=== PATIENT | female | born 1945 | race Caucasian/White ===

== ENCOUNTER 2017-01-04 11:15 | Outpatient (CLI) | payer MEDICARE, BC ==
--- NOTE | 2017-01-04 13:28 | RAD ---
RADIOGRAPH ABDOMEN ONE VIEW SUPINE: 01/04/2017 HISTORY: A 71-year-old female with history of renal stone. COMPARISON: No recent prior KUBs are available. There is a noncontrast CT from 03/25/2008, which shows a puncta te 2 mm calculus in a right renal lower pole calyx, which is too small and too faint to visualize on plain radiography. FINDINGS: No calculus overlying the renal shadows is visible. There are faint, short, linear, calcific densit ies in the pelvis bilaterally. One of these on the right represents a tubal ligation clip. Another on the right may be a calcified suture line at the tip of the cecum. The bowel gas pattern is norm al. High-grade degenerative facet disease at L5-S1. No evidence of organomegaly. IMPRESSION: 1. No evidence of urolithiasis. 2. Facet osteoarthrosis at the lumbosacral junction. POS: [facility]
[2017-01-04 13:51] LABS: Bilirubin Negative (Negative); Blood, Urine Negative (Negative); Glucose, Urine (Dipstick) Negative (Negative); Ketone, Urine Negative (Negative); Nitrite Negative (Negative); Protein, Urine (Dipstick) Negative (Neg-Trace); Urobilinogen 0.2 mg/dL (0.2-1.0)
[2017-01-04 13:58] LABS: Bacteria/HPF None Seen HPF (None Seen); Hyaline Casts/LPF 0-3 HYALINE CAST LPF (0-3 Hyaline); RBC/HPF 0-3 HPF (0-3); Squamous Epithelial 0-3 HPF (0-3); WBC/HPF None Seen HPF (0-3)
== END 2017-01-04 11:16 | disposition home or self-care (01) ==
LOC: RAD 11:15
PROVIDERS: ATTEND Urology
DX: R35.1 Nocturia (principal); Z87.442 Personal history of urinary calculi; Z87.440 Personal history of urinary (tract) infections; M47.817 Spondylosis without myelopathy or radiculopathy, lumbosacral region
CPT/HCPCS: 74000; 81001; 87086

== ENCOUNTER 2017-02-22 14:52 | Outpatient (CLI) | payer MEDICARE, BC ==
--- NOTE | 2017-02-22 15:23 | MMO ---
RIGHT DIAGNOSTIC MAMMOGRAM: Technique: Two views of right breast obtained post biopsy. Indication: Assess biopsy clip. Ultrasound guided biopsy was performed at Dr. Kendall' office. Patien t was sent to assess biopsy clip location. FINDINGS: A localization clip is seen in the retroareolar region of the right breast. This corresponds to the s tated site of ultrasound biopsy. IMPRESSION: BIRADS 4 - suspicious lesion. Patient is post ultrasound guided biopsy. Pathology pending. POS: [facility]
== END 2017-02-22 14:53 | disposition home or self-care (01) ==
LOC: MAMMO 14:52
PROVIDERS: ATTEND Specialist
DX: N63.10 Unspecified lump in the right breast, unspecified quadrant (principal)
CPT/HCPCS: G0206-RT

== ENCOUNTER 2017-02-24 13:14 | Outpatient (CLI) | payer MEDICARE, BC ==
[2017-02-24 15:08] LABS: #Basophils 0.1 thou/uL (0.0-0.2); #Eosinphils 0.2 thou/uL (0.0-0.7); #Lymphocytes 1.8 thou/uL (1.20-3.40); #Monocytes 0.7 thou/uL (0.11-0.59); #Neutrophils 3.7 thou/uL (1.40-6.50); %Basophils 1.1 % (0.0-1.0); %Lymphocytes 27.6 % (21.0-51.0); Hematocrit 42.1 % (36.0-47.0); Mean Platelet Volume 6.7 fL (7.4-10.4); Red Blood Cell (RBC) Count 4.48 mill/uL (4.20-5.40); White Blood Cell (WBC) Count 6.4 thou/uL (4.8-10.8)
[2017-02-24 15:25] LABS: Anion Gap 11 mmol/L (10-20); BUN (Urea Nitrogen) 15 mg/dL (9.8-20.1); Calc. Creatinine Clearance 0 mL/min (70-130); Calcium 9.4 mg/dL (7.8-10.44); Carbon Dioxide 28 mmol/L (23-31); Chloride 104 mmol/L (98-107); Estimated GFR-MDRD 63
== END 2017-02-24 13:15 | disposition home or self-care (01) ==
LOC: LABBT 13:14
PROVIDERS: ATTEND Specialist
DX: Z01.818 Encounter for other preprocedural examination (principal); N63.10 Unspecified lump in the right breast, unspecified quadrant
CPT/HCPCS: 80048; 85025; 93005; 93010

== ENCOUNTER 2017-03-07 11:40 | Day surgery (SDC) | payer MEDICARE, BC ==
[2017-02-24 13:32] VITALS: BMI 28.7
[2017-03-07] MEDS ORDERED: CEFAZOLIN/Water 2 GM/20 ML SYRINGE ONE (12:01)
[2017-03-07] MEDS ORDERED: Ketorolac Tromethamine 30 MG/ML VIAL ONE (12:01)
[2017-03-07] MEDS ORDERED: Fentanyl 100 MCG/2 ML VIAL ONE (13:11)
[2017-03-07] MEDS ORDERED: Bupivacaine/Epinephrine 0.25% 30 ML VIAL ONE (13:13)
[2017-03-07] MEDS ORDERED: Sodium Bicarbonate 2.4 MEQ/5 ML ONE (13:13)
[2017-03-07] MEDS ORDERED: ePHEDrine/0.9% NaCl/PF SYRINGE 50 mg/10 ml ONE (16:28)
[2017-03-07] MEDS ORDERED: PHENYLEPHRINE-NS 100 MCG/ML 10 ML SYRINGE ONE (16:28)
[2017-03-07] MEDS ORDERED: Succinylcholine Chloride 20 MG/ML 10 ml SYRINGE FS ONE (16:28)
[2017-03-07] MEDS ORDERED: Ondansetron HCl/PF 4 MG/2 ML Vial ONE (16:28)
[2017-03-07] MEDS ORDERED: Propofol 200 MG/20 ML VIAL ONE (16:28)
[2017-03-07] MEDS ORDERED: Dexamethasone 20 MG/5 ML VIAL ONE (16:28)
[2017-03-07] MEDS ORDERED: Lidocaine 1% PF 5 ML VIAL ONE (16:28)
--- NOTE | 2017-03-07 20:27 | OP ---
DATE OF PROCEDURE: 03/07/2017 PREOPERATIVE DIAGNOSIS: Right breast subareolar mass. POSTOPERATIVE DIAGNOSIS: Right breast subareolar mass. OPERATION PERFORMED: Excisional biopsy of a palpable right breast mass. SURGEON: Judah Kendall M.D. ANESTHESIA: General endotracheal per Dr. Roman with local using 0.25% Marcaine with epinephrine. INDICATIONS: The patient is a 71-year-old white female. She presented with a palpable right subareo lar mass. She had in some fashion had nipple-sparing bilateral mastectomies performed years ago, so she has minimal breast tissue present. Biopsies of this mass proved to be benign, but since she felt this was a change, I recommended excision. DESCRIPTION OF OPERATION: Informed consent was obtained. The patient was taken to the operating arielle m where general endotracheal anesthesia was obtained with the patient in supine position. Right fabian st was prepped with ChloraPrep and draped in sterile fashion. Local anesthetic was infiltrated using 0.25% Marcaine with epinephrine. Prior supraareolar incision was reopened and dissection was breanna d through skin and subcutaneous tissue. Dissection was then carried subareolar. I was able to palpa te and grasp the area of concern and this was dissected sharply circumferentially and passed off the field. On palpating the tissue subareolar, there was a second nodular lesion that was about 6-7 mm i n diameter. This was also grasped and removed sharply. Meticulous hemostasis was obtained with elec trocautery. The wound was closed in layers with 3-0 and 4-0 Monocryl. Additional local anesthetic w as infiltrated during closure. Dermabond was placed externally. There were no complications. The p atient tolerated the procedure well and was taken to recovery room in stable condition.
== END 2017-03-07 16:20 | disposition home or self-care (01) ==
LOC: SDC 11:40
PROVIDERS: ATTEND Specialist
PROC: 0HBT0ZX Excision of Right Breast, Open Approach, Diagnostic (ICD-10-PCS; principal; 2017-03-07)
DX: D24.1 Benign neoplasm of right breast (principal); I10 Essential (primary) hypertension; G43.909 Migraine, unspecified, not intractable, without status migrainosus; K21.9 Gastro-esophageal reflux disease without esophagitis; F32.9 Major depressive disorder, single episode, unspecified; Z88.5 Allergy status to narcotic agent; Z91.048 Other nonmedicinal substance allergy status; Z90.13 Acquired absence of bilateral breasts and nipples; Z82.49 Family history of ischemic heart disease and other diseases of the circulatory system
CPT/HCPCS: 88307; J0131; J1100; J1885; J2001; J2405; J2704; J3010

== ENCOUNTER 2017-03-17 08:22 | Outpatient (CLI) | payer MEDICARE, BC ==
--- NOTE | 2017-03-17 14:06 | NM ---
NUCLEAR MEDICINE GASTRIC EMPTYING SCAN: 03/17/2017 HISTORY: A 71-year-old female with gastroesophageal reflux disease without esophagitis. TECHNIQUE: 2.1 millicuries of technetium 99m sulfur colloid was served in oatmeal. Anterior scintigraphic image s of the abdomen were obtained immediately, at 30 minutes, at 1 hour, at 2 hours, and at 3 hours. Co unts obtained over the stomach and time-activity curve generated. FINDINGS: Percentage emptying is as follows: 1% at 27 minutes 23% at 55 minutes 75% at 115 minutes 96% at 171 minutes 100% at 232 minutes Half-time of emptying is 86 minutes. IMPRESSION: Within normal limits. POS: [facility]
== END 2017-03-17 08:23 | disposition home or self-care (01) ==
LOC: NM 08:22
PROVIDERS: ATTEND Internal Medicine Gastroenterology
DX: K21.9 Gastro-esophageal reflux disease without esophagitis (principal)
CPT/HCPCS: 78264; A9541

== ENCOUNTER 2017-03-31 10:28 | Outpatient (CLI) | payer MEDICARE, BC ==
--- NOTE | 2017-03-31 13:25 | RAD ---
EXAM: UPPER GI WITH AIR CONTRAST: HISTORY: Gastroesophageal reflux disease. Hiatal hernia. COMPARISON: None. FINDINGS: SUPINE FNP ABDOMEN RADIOGRAPH: Nonspecific bowel gas pattern. The thoracic esophagus has an overall normal course and caliber. No mucosal abnormality. There is a moderate hiatal hernia with reflux during fluoroscopy. Gastric mucosa has an overall normal appeara nce. Duodenal bulb and proximal duodenum are unremarkable. IMPRESSION: Moderate hiatal hernia with evidence of reflux during intermittent fluoroscopy. POS: [facility]
== END 2017-03-31 10:29 | disposition home or self-care (01) ==
LOC: RAD 10:28
PROVIDERS: ATTEND Specialist
DX: K21.9 Gastro-esophageal reflux disease without esophagitis (principal); K44.9 Diaphragmatic hernia without obstruction or gangrene
CPT/HCPCS: 74247

== ENCOUNTER → 2017-04-03 | Day surgery (SDC) | payer MEDICARE, BC | LOC: SDC 07:37 | PROVIDERS: ATTEND Internal Medicine Gastroenterology | DX: K21.9 Gastro-esophageal reflux disease without esophagitis (principal); K44.9 Diaphragmatic hernia without obstruction or gangrene; I10 Essential (primary) hypertension; F32.9 Major depressive disorder, single episode, unspecified; Z87.442 Personal history of urinary calculi; Z88.5 Allergy status to narcotic agent; Z88.8 Allergy status to other drugs, medicaments and biological substances; Z91.040 Latex allergy status; Z79.82 Long term (current) use of aspirin; Z79.899 Other long term (current) drug therapy; Z90.10 Acquired absence of unspecified breast and nipple; Z90.49 Acquired absence of other specified parts of digestive tract; Z98.890 Other specified postprocedural states | CPT/HCPCS: 91010 ==

== ENCOUNTER 2017-04-17 11:43 | Outpatient (CLI) | payer MEDICARE, BC ==
[2017-04-17 13:49] LABS: #Basophils 0.1 thou/uL (0.0-0.2); #Eosinphils 0.2 thou/uL (0.0-0.7); #Lymphocytes 1.9 thou/uL (1.20-3.40); #Monocytes 0.8 thou/uL (0.11-0.59); #Neutrophils 4.5 thou/uL (1.40-6.50); %Basophils 1.2 % (0.0-1.0); %Eosinophils 3.1 % (0.0-10.0); %Lymphocytes 25.8 % (21.0-51.0); %Monocytes 10.6 % (0.0-10.0); %Neutrophils 59.4 % (42.0-75.0); Hemoglobin 14.1 g/dL (12.0-16.0); Mean Corpuscular HGB CONC 33.1 g/dL (32.0-36.0); Mean Corpuscular Hemoglobin 30.9 pg (27.0-31.0); Mean Corpuscular Volume 93.4 fl (81.0-99.0); Mean Platelet Volume 6.8 fL (7.4-10.4); Platelet Count 204 thou/uL (130-400); RBC Distribution Width 12.3 % (11.5-14.5); Red Blood Cell (RBC) Count 4.55 mill/uL (4.20-5.40); White Blood Cell (WBC) Count 7.5 thou/uL (4.8-10.8)
[2017-04-17 14:19] LABS: Anion Gap 16 mmol/L (10-20); BUN (Urea Nitrogen) 24 mg/dL (9.8-20.1); Calc. Creatinine Clearance 0 mL/min (70-130); Calcium 9.8 mg/dL (7.8-10.44); Carbon Dioxide 26 mmol/L (23-31); Chloride 103 mmol/L (98-107); Estimated GFR-MDRD 70; Glucose 96 mg/dL (83-110); Sodium 141 mmol/L (136-145)
--- NOTE | 2017-04-17 14:54 | RAD ---
RADIOGRAPH CHEST 2 VIEWS: HISTORY: 71-year-old female for pre-operative evaluation. FINDINGS: There is no air space density, pulmonary edema, pleural effusion, pneumothorax, or cardiomegaly. IMPRESSION: No acute cardiopulmonary findings. frank POS: [facility]
--- NOTE | 2017-04-18 23:39 | EKG ---
Test Reason : Blood Pressure : / mmHG Vent. Rate : 071 BPM Atrial Rate : 071 BPM P-R Int : 176 ms QRS Dur : 084 ms QT Int : 390 ms P-R-T Axes : 044 054 136 degrees QTc Int : 423 ms Normal sinus rhythm Nonspecific ST and T wave abnormality Abnormal ECG When compared with ECG of 24-FEB-2017 14:04, (Unconfirmed) Nonspecific T wave abnormality, worse in Lateral leads Confirmed by Richard CASAS ([id number]) on 04/18/2017 11:39:28 PM Referred By: TRAV Confirmed By:Richard CASAS
== END 2017-04-17 11:44 | disposition home or self-care (01) ==
LOC: LABBT 11:43
PROVIDERS: ATTEND Specialist
DX: Z01.812 Encounter for preprocedural laboratory examination (principal); Z01.810 Encounter for preprocedural cardiovascular examination; Z01.818 Encounter for other preprocedural examination; K44.9 Diaphragmatic hernia without obstruction or gangrene; K21.9 Gastro-esophageal reflux disease without esophagitis
CPT/HCPCS: 71046; 80048; 85025; 93005; 93010

== ENCOUNTER 2017-04-17 12:00 | Inpatient (IN) | payer MEDICARE, BC ==
[2017-04-17 12:07] VITALS: BMI 27.9
[2017-04-20] MEDS ORDERED: Ketorolac Tromethamine 30 MG/ML VIAL ONE (08:30)
[2017-04-20] MEDS ORDERED: CEFAZOLIN/Water 2 GM/20 ML SYRINGE ONE (08:30)
[2017-04-20] MEDS ORDERED: Scopolamine 1.5 mg/72 hour Patch ONE (09:00)
[2017-04-20] MEDS ORDERED: Bupivacaine 0.25% HCL 30 ML VIAL ONE (09:16)
[2017-04-20] MEDS ORDERED: Lidocaine 2% w/Epinephrine 1:200K 20 ML VIAL ONE (09:16)
[2017-04-20] MEDS ORDERED: Midazolam HCl 2 mg/2 ml Vial ONE (09:35)
[2017-04-20] MEDS ORDERED: Fentanyl 100 MCG/2 ML VIAL ONE ×3 (09:41→12:27)
[2017-04-20] MEDS ORDERED: HYDROmorphone 0.5 MG/0.5 ML SYRINGE ONE ×3 (12:44→13:08)
[2017-04-20] MEDS ORDERED: Ondansetron HCl/PF 4 MG/2 ML Vial IVP PRN (12:46)
[2017-04-20] MEDS ORDERED: Promethazine HCl 25 MG/ML VIAL IM/IV PRN (12:46)
[2017-04-20] MEDS ORDERED: Non-Formulary Medication 1 EACH PO PRN (12:46)
[2017-04-20] MEDS ORDERED: HYDROmorphone 2 MG/ML VIAL SLOW IVP PRN (12:46)
[2017-04-20] MEDS ORDERED: Dextrose 5% in Water 1,000 ML IV PRN (14:10)
[2017-04-20] MEDS ORDERED: Acetaminophen 325 MG TAB PO PRN (14:10)
[2017-04-20] MEDS ORDERED: Promethazine HCl 25 MG/ML VIAL IM PRN (14:10)
[2017-04-20] MEDS ORDERED: Morphine 2 MG/ML SYRINGE SLOW IVP PRN (14:10)
[2017-04-20] MEDS ORDERED: Mag-Al 1200 mg/1200 mg/30 ML UDCUP PO PRN (14:10)
[2017-04-20] MEDS ORDERED: hydrALAZINE 20 MG/ML VIAL SLOW IVP PRN (14:10)
[2017-04-20] MEDS ORDERED: Calcium Carbonate 500 MG ChewTAB PO PRN (14:10)
[2017-04-20] MEDS ORDERED: Dextrose 50% Abboject 50 ML SYRINGE SLOW IVP PRN (14:10)
[2017-04-20] MEDS: Ondansetron HCl/PF 4 MG/2 ML Vial IVP PRN ×2 (14:24→23:18)
[2017-04-20] MEDS: D5 1/2 NS w/20 mEq KCL 1,000 ML IV SCH ×2 (14:25→20:25)
[2017-04-20] MEDS: Morphine 2 MG/ML SYRINGE SLOW IVP PRN (14:29)
[2017-04-20] MEDS: Ketorolac Tromethamine 30 MG/ML VIAL IVP SCH ×2 (15:23→20:27)
[2017-04-20] MEDS ORDERED: ePHEDrine/0.9% NaCl/PF SYRINGE 50 mg/10 ml ONE (16:18)
[2017-04-20] MEDS ORDERED: PROPOFOL 200 MG/20 ML VIAL ONE (16:18)
[2017-04-20] MEDS ORDERED: PHENYLEPHRINE-NS 100 MCG/ML 10 ML SYRINGE ONE (16:18)
[2017-04-20] MEDS ORDERED: Dexamethasone 20 MG/5 ML VIAL ONE (16:18)
[2017-04-20] MEDS ORDERED: Glycopyrrolate 0.2 MG/ML 5 ML SYRINGE ONE (16:18)
[2017-04-20] MEDS ORDERED: Ondansetron HCl/PF 4 MG/2 ML Vial ONE (16:18)
[2017-04-20] MEDS ORDERED: Lidocaine 1% PF 5 ML VIAL ONE (16:18)
[2017-04-20] MEDS ORDERED: Enoxaparin Sodium 40 MG/0.4 ML SYRINGE SC SCH (21:00)
[2017-04-21 04:11] LABS: #Lymphocytes 1.4 thou/uL (1.20-3.40); #Monocytes 1.2 thou/uL (0.11-0.59); #Neutrophils 8.9 thou/uL (1.40-6.50); %Eosinophils 0.1 % (0.0-10.0); %Lymphocytes 11.8 % (21.0-51.0); %Monocytes 10.6 % (0.0-10.0); %Neutrophils 77.5 % (42.0-75.0); Hemoglobin 12.8 g/dL (12.0-16.0); Mean Corpuscular HGB CONC 33.1 g/dL (32.0-36.0); Mean Corpuscular Hemoglobin 30.7 pg (27.0-31.0); Mean Corpuscular Volume 92.9 fl (81.0-99.0); Mean Platelet Volume 6.6 fL (7.4-10.4); Platelet Count 192 thou/uL (130-400); RBC Distribution Width 12.1 % (11.5-14.5); Red Blood Cell (RBC) Count 4.16 mill/uL (4.20-5.40); White Blood Cell (WBC) Count 11.5 thou/uL (4.8-10.8)
[2017-04-21] MEDS: Ondansetron HCl/PF 4 MG/2 ML Vial IVP PRN (05:43)
[2017-04-21] MEDS: Morphine 2 MG/ML SYRINGE SLOW IVP PRN (05:44)
[2017-04-21] MEDS: Ketorolac Tromethamine 30 MG/ML VIAL IVP SCH ×2 (05:44→12:30)
[2017-04-21] MEDS: D5 1/2 NS w/20 mEq KCL 1,000 ML IV SCH (05:50)
--- NOTE | 2017-04-21 08:50 | PRG ---
DATE OF SERVICE: 04/21/2017 SUBJECTIVE: Ms. Bui is postoperative day #1 from laparoscopic repair of hiatal hernia and Xochilt fundoplication. She unfortunately tells me she has had fairly severe discomfort overnight both in he r shoulders and in her upper abdomen. She does not believe that her pain has been well controlled wi th her pain control. She was receiving scheduled Toradol, and p.r.n. morphine. She tells me she bas ically has not slept overnight. She also tells me that she has had a couple of small volume episodes of emesis. She does not currently feel nauseated. She denies any reflux related symptoms in spite of receiving none of her usual acid reducing medication. PHYSICAL EXAMINATION: VITAL SIGNS: On examination today she is afebrile, pulse 71, blood pressure 122/71. GENERAL: She d oes not appear to be in severe discomfort and is resting in bed. Her daughter is present at bedside. The patient is very appropriate. LUNGS: Clear to auscultation bilaterally. CARDIAC: Regular rate and rhythm. ABDOMEN: Soft. Incisions are well healed. Bowel sounds are present and normoactive. LABORATORY STUDIES: Her CBC shows a white blood cell count of 11.5 with hemoglobin of 12.8. ASSESSMENT: The patient appears to have some bilateral shoulder pain, likely related to her intraper itoneal gas from her surgery. I told her that this will only improve by be upright and walking and s hould resolve sometime today. I will give her a 1 time dose of Demerol with Phenergan to try and get past her episode of discomfort, let her have a little bit of rest this morning. Hopefully, she can resume her diet and activity and plan on discharge later today. I will decrease her IV fluid rate an d will restart all of her appropriate home medications.
[2017-04-21] MEDS ORDERED: HYDROcodone/Acetaminophen 7.5/325 mg Tablet PO PRN ×2 (08:52)
[2017-04-21] MEDS ORDERED: Promethazine HCl 25 MG in Sodium Chloride 0.9% 50 ML IVPB SCH (09:00)
[2017-04-21] MEDS ORDERED: Hydrochlorothiazide 25 MG TAB PO SCH (09:00)
[2017-04-21] MEDS ORDERED: Escitalopram Oxalate 20 mg Tablet PO SCH (09:00)
[2017-04-21] MEDS ORDERED: Carvedilol 6.25 MG TAB PO SCH (09:00)
[2017-04-21] MEDS ORDERED: Lisinopril 10 MG TAB PO SCH (09:00)
[2017-04-21] MEDS ORDERED: Meperidine HCl/PF 25 MG/ML VIAL SLOW IVP SCH (09:00)
--- NOTE | 2017-04-21 10:07 | RAD ---
CHEST ONE VIEW: HISTORY: Hiatal hernia repair. Shoulder pain. COMPARISON: Chest radiograph from 04/17/2017. FINDINGS: There is mild gaseous distention of bowel. The lungs are relatively clear with only mild atelectasis . There appears to be some subcutaneous emphysema over the shoulders bilaterally. IMPRESSION: Subcutaneous emphysema projecting over the shoulders and trapezius muscles of the neck. This may be post surgical in nature. Clinical correlation is advised. POS: [facility]
[2017-04-21 11:45] VITALS: BP 126/76
[2017-04-21] MEDS ORDERED: diphenhydrAMINE 50 MG/ML VIAL ONE (11:50)
[2017-04-21] MEDS ORDERED: diphenhydrAMINE 25 MG CAP PO SCH (12:15)
[2017-04-21] MEDS ORDERED: diphenhydrAMINE 50 MG/ML VIAL IVP PRN (12:33)
[2017-04-21 15:46] VITALS: TEMP 97.4
--- NOTE | 2017-04-22 16:46 | OP ---
DATE OF SERVICE: 04/20/2017 PREOPERATIVE DIAGNOSIS: Hiatal hernia with gastroesophageal reflux disease. POSTOPERATIVE DIAGNOSIS: Hiatal hernia with gastroesophageal reflux disease. OPERATION PERFORMED: Laparoscopic Xochilt fundoplication. SURGEON: Judah Kendall M.D. ANESTHESIA: General endotracheal. INDICATIONS: The patient is a 71-year-old white female with extensive symptoms associated with her h iatal hernia and gastroesophageal reflux disease. The symptoms are minimally controlled with medicat ion. She is taken to the operating room at this time for laparoscopic Xochilt fundoplication. DESCRIPTION OF OPERATION: Informed consent was obtained. The patient was taken to the operating arielle m where general endotracheal anesthesia was obtained with the patient in supine position. Abdomen wa s prepped with ChloraPrep and draped in sterile fashion. Local anesthetic was infiltrated and a 5 mm supraumbilical incision was created through which a Veress needle was passed into the peritoneal cav ity. Pneumoperitoneum was established using carbon dioxide up to a pressure of 15 mmHg. A 5 mm troc ar port was passed through this same incision. Laparoscopic camera was passed through this port. Un avery direct vision, 4 additional ports were placed including an 11 mm left epigastric port, a 5 mm rig ht epigastric port, and bilateral subcostal 5 mm ports. Through the right lateral port, a triangle retractor was placed and used to elevate the left lobe of the liver using the Richar's arm. Visualization of the hiatus revealed an obvious hiatal hernia with a significant volume of stomach present up within the mediastinum. I was able to grasp the stomach and reduce the entire volume of the stomach into the abdominal cavity. I began dissection on the lef t side. I dissected the peritoneum off of the easily visible left naima. I continued the peritoneal dissection around the anterior aspect and over on to the right side. The right side, I dissected thr ough the pars flaccida and down on to the right naima. In so doing, I was able to dissect circumferen tially around the esophagus. I then dissected posteriorly and created a retroesophageal window. The [place] drain was passed through this and used to elevate the esophagus. I then carefully dissected both of the crura. Although there was a substantial defect, the two columns of the crura were actua lly relatively closely approximated as it extended posteriorly. The muscular columns were also very, very viable muscle of appropriate thickness. I turned my attention to the greater curvature of the stomach. I took down the omental and vascular tissue off the greater curvature of the stomach in an ascending fashion along the upper 1/[address] omach. Great care was taken in mobilizing the short gastric vessels. No blood loss was encountered as this was performed. When the entire upper greater curvature and posterior aspect of the stomach w ere mobile, attention was returned to the retroesophageal window. A size 50 bougie was passed down t hrough the esophagus into the stomach under direct vision. Using this to calibrate the closure, I cl osed the hiatal defect with 2 posterior sutures of 0 Bralon using the auto-suture device. This led t o excellent approximation of the crura around the esophagus while still leaving the appropriate laxit y to avoid crimping the esophagus. I identified a floppy segment of the upper portion of the fundus and passed this through the retroeso phageal window. I then selected a segment of the anterior fundus and created, the 360 degree wrap by placing 3 gastro-gastric sutures, each 1 cm apart. The upper and lower of these sutures incorporate d bites of the anterior esophagus. It was ensured that there was adequate laxity of the gastric wrap around the esophagus. The bougie was then removed. Collar sutures were then placed using the 0 Bralon between the gastric wrap and the hiatus at the 10:30 and 1:30 radiance. Finally, I placed a posterior gastropexy suture between the posterior aspect of the wrap and the crural closure. The area was inspected and there was found to be no evidence of any injury to any structures. There had been no blood loss during the course of this operation. The triangle retractor was removed. The fascia at the 11 mm port site was closed with 0 Vicryl suture using a GraNee needle. All ports and instruments were removed under direct vision. Pneumoperitoneum was carefully evacuated. Quarter per cent Marcaine with epinephrine was infiltrated in each port site. Skin edges were approximated with 4-0 Monocryl subcuticular suture and Dermabond was placed externally. There were no complications. Patient tolerated the procedure well and was taken to recovery room in stable condition.
== END 2017-04-21 16:00 | disposition home or self-care (01) | DRG 328 ==
LOC: SURG A 04-20 07:19
PROVIDERS: ADMIT Specialist; ATTEND Specialist
PROC: 0DV44ZZ Restriction of Esophagogastric Junction, Percutaneous Endoscopic Approach (ICD-10-PCS; principal; 2017-04-20)
PROC: 0BQT4ZZ Repair Diaphragm, Percutaneous Endoscopic Approach (ICD-10-PCS; 2017-04-20)
DX: K21.9 Gastro-esophageal reflux disease without esophagitis (principal); F32.9 Major depressive disorder, single episode, unspecified; I10 Essential (primary) hypertension; K44.9 Diaphragmatic hernia without obstruction or gangrene; Z90.10 Acquired absence of unspecified breast and nipple
CPT/HCPCS: 36415; 71045; 85025; J0131; J1100; J1170; J1200; J1650; J1885; J2001; J2175; J2250; J2270; J2405; J2550; J2704; J3010; J7050; S0020

== ENCOUNTER 2017-05-15 05:38 | Emergency (ER) | payer MEDICARE, BC ==
[2017-05-15 06:33] LABS: #Basophils 0.1 thou/uL (0.0-0.2); #Eosinphils 0.3 thou/uL (0.0-0.7); #Monocytes 0.7 thou/uL (0.11-0.59); #Neutrophils 3.7 thou/uL (1.40-6.50); %Basophils 1.3 % (0.0-1.0); %Eosinophils 4.2 % (0.0-10.0); %Lymphocytes 29.7 % (21.0-51.0); %Monocytes 10.2 % (0.0-10.0); %Neutrophils 54.7 % (42.0-75.0); Mean Corpuscular HGB CONC 33.5 g/dL (32.0-36.0); Mean Corpuscular Hemoglobin 31.1 pg (27.0-31.0); Mean Corpuscular Volume 92.7 fl (81.0-99.0); Mean Platelet Volume 6.7 fL (7.4-10.4); Platelet Count 206 thou/uL (130-400); RBC Distribution Width 12.5 % (11.5-14.5); White Blood Cell (WBC) Count 6.7 thou/uL (4.8-10.8)
[2017-05-15 06:55] LABS: ALT (SGPT) 11 U/L (8-55); AST (SGOT) 16 U/L (5-34); Albumin 4.1 g/dL (3.4-4.8); Alkaline Phosphatase 64 U/L (40-150); Anion Gap 12 mmol/L (10-20); BUN (Urea Nitrogen) 13 mg/dL (9.8-20.1); Bilirubin, Total 0.6 mg/dL (0.2-1.2); CK (CPK) 61 U/L (29-168); Calc. Creatinine Clearance 0 mL/min (70-130); Calcium 9.7 mg/dL (7.8-10.44); Carbon Dioxide 28 mmol/L (23-31); Chloride 105 mmol/L (98-107); Estimated GFR-MDRD 71; Globulin 2.9 g/dL (2.4-3.5); Glucose 96 mg/dL (83-110); Potassium 3.6 mmol/L (3.5-5.1); Sodium 141 mmol/L (136-145)
[2017-05-15 07:00] LABS: CKMB 0.9 ng/mL (0-6.6)
--- NOTE | 2017-05-15 08:19 | RAD ---
PA AND LATERAL VIEWS OF CHEST: Date: 05/15/17 HISTORY: Chest pain. FINDINGS/IMPRESSION: Comparison made with exam of 04/21/17. The heart size is normal. The aorta is tortuous. The lungs are expanded without lobar consolidation o r pneumothoraces. A small right pleural effusion is present. POS: [facility]
== END 2017-05-15 09:48 | disposition home or self-care (01) ==
LOC: ERS 05:38
DX: R10.13 Epigastric pain (principal); F32.9 Major depressive disorder, single episode, unspecified; I10 Essential (primary) hypertension; K21.9 Gastro-esophageal reflux disease without esophagitis; Z87.442 Personal history of urinary calculi; Z79.82 Long term (current) use of aspirin; Z79.899 Other long term (current) drug therapy
CPT/HCPCS: 36415; 71046; 80053; 82550; 82553; 83690; 84484; 85025; 93005

== ENCOUNTER 2017-05-18 10:55 | Outpatient (CLI) | payer MEDICARE, BC ==
[2017-05-18] MEDS ORDERED: Iopamidol 370 76% 100 ML VIAL ONE (11:50)
--- NOTE | 2017-05-18 13:19 | CT ---
CT ABDOMEN WITH CONTRAST: Technique: Multiple axial tomograms were obtained through the abdomen with IV enhancement. Oral contr ast was administered. History: Epigastric pain. Post hiatal hernia surgery approximately 1 month ago. FINDINGS: Lung bases are clear. There are changes at the EG junction of a Xochilt wrap type procedure. The inges nohemy contrast fills and mildly distends the stomach. There is no fluid collection or abscess seen at t he operative site. There is some gas seen within the gastric lumen wrapping the distal esophagus abov e the diaphragm. There is evidence of a small pericardial effusion. Tiny hepatic cyst in the mid right lobe of the liver is stable finding when compared to a prior CT of 2007. Liver, spleen, and pancreas unremarkable. Adrenal glands and kidneys unremarkable. Visualized bowel loops unremarkable. IMPRESSION: 1. Wrap type procedure at the EG junction. Ingested contrast fills and mildly distends the stomach. G as filled gastric lumen is seen above the diaphragm wrapping the esophagus. 2. Tiny pericardial effusion. 3. No evidence of abscess or abnormal fluid collection. POS: [facility]
== END 2017-05-18 10:56 | disposition home or self-care (01) ==
LOC: CT 10:55
PROVIDERS: ATTEND Specialist
DX: R10.9 Unspecified abdominal pain (principal); I31.3 Pericardial effusion (noninflammatory)
CPT/HCPCS: 74160

== ENCOUNTER 2017-05-19 08:40 | Outpatient (CLI) | payer MEDICARE, BC ==
--- NOTE | 2017-05-19 11:00 | RAD ---
BIPHASIC UPPER GI: Date: 05/19/17 HISTORY: 71-year-old female with epigastric pain on and off. Chest pain. Patient had hiatal hernia surgery. FINDINGS: Swallowing was grossly normal. There was unobstructed flow of contrast through the esophagus and into the stomach, duodenum, and proximal jejunum. No obstructing mass, diverticulum, or ulcer is seen. Na rrowing in the distal esophagus/GE junction is consistent with postop change. No GE reflux demonstrat ed during Valsalva maneuver. The dope mixer film demonstrates residual contrast in the colon from previous day's CT scan. IMPRESSION: No significant abnormalities are seen. POS: [facility]
== END 2017-05-19 08:41 | disposition home or self-care (01) ==
LOC: RAD 08:40
PROVIDERS: ATTEND Specialist
DX: R10.9 Unspecified abdominal pain (principal)
CPT/HCPCS: 74247

== ENCOUNTER 2018-09-17 01:54 | Emergency (ER) | payer MEDICARE, BC ==
[2018-09-17] MEDS ORDERED: Ketorolac Tromethamine 30 MG/ML VIAL ONE (02:21)
[2018-09-17] MEDS ORDERED: Fentanyl 100 MCG/2 ML VIAL ONE (02:21)
[2018-09-17 02:25] LABS: #Basophils 0.1 thou/uL (0.0-0.2); #Eosinphils 0.1 thou/uL (0.0-0.7); #Monocytes 0.7 thou/uL (0.11-0.59); #Neutrophils 4.7 thou/uL (1.40-6.50); %Basophils 1.1 % (0.0-1.0); %Eosinophils 1.5 % (0.0-10.0); %Lymphocytes 34.6 % (21.0-51.0); %Monocytes 7.7 % (0.0-10.0); Hemoglobin 13.4 g/dL (12.0-16.0); Mean Corpuscular HGB CONC 33.2 g/dL (32.0-36.0); Mean Corpuscular Volume 90.5 fL (78.0-98.0); Mean Platelet Volume 7.9 fL (7.4-10.4); Platelet Count 209 thou/uL (130-400); RBC Distribution Width 13.5 % (11.5-14.5); Red Blood Cell (RBC) Count 4.45 mill/uL (4.20-5.40); White Blood Cell (WBC) Count 8.5 thou/uL (4.8-10.8)
[2018-09-17 02:44] LABS: ALT (SGPT) 10 U/L (8-55); AST (SGOT) 15 U/L (5-34); Albumin 3.9 g/dL (3.4-4.8); Alkaline Phosphatase 50 U/L (40-150); Anion Gap 14 mmol/L (10-20); BUN (Urea Nitrogen) 26 mg/dL (9.8-20.1); Bilirubin, Total 0.6 mg/dL (0.2-1.2); Calc. Creatinine Clearance 0 mL/min (70-130); Calcium 9.7 mg/dL (7.8-10.44); Carbon Dioxide 25 mmol/L (23-31); Chloride 104 mmol/L (98-107); Estimated GFR-MDRD 63; Globulin 2.3 g/dL (2.4-3.5); Glucose 119 mg/dL (83-110); Potassium 4.4 mmol/L (3.5-5.1); Protein, Total 6.2 g/dL (6.0-8.3); Sodium 139 mmol/L (136-145)
[2018-09-17] MEDS ORDERED: HYDROcodone/Acetaminophen 10/325 mg Tablet ONE (04:15)
--- NOTE | 2018-09-17 07:26 | CT ---
PRELIMINARY REPORT/[facility]/EMERGENCY AFTER HOURS PROCEDURE: EXAM: CT Head Without Contrast EXAM DATE/TIME: 09/17/2018 2:59 AM CLINICAL HISTORY: 72 years old, female; Injury or trauma; Initial encounter; Blunt trauma (contusions or hematomas); Patient HX: 72 yo F presents after fall from bed. PT reports she fell when trying to get out of bed. She reports some nausea and lightheadedness after the fall. Currently reports severe left rib pain that feels similar to a broken rib she has had in the past. She denies hemoptysis, denies SOB TECHNIQUE: Imaging protocol: Axial computed tomography images of the head without contrast. COMPARISON: No relevant prior studies available. FINDINGS: Brain: Volume loss and chronic small vessel ischemic change. No brain edema. No intracranial hemorrha ge. Ventricles: Normal. No ventriculomegaly. Bones/joints: Unremarkable. No acute fracture. Sinuses: Visualized sinuses are unremarkable. No fluid levels. Mastoid air cells: Visualized mastoid air cells are well aerated. No mastoid effusion. Soft tissues: Unremarkable. IMPRESSION: No acute brain findings. Thank you for allowing us to participate in the care of your patient. Dictated and Authenticated by: Kirk Saeed MD 09/17/2018 3:17 AM Central Time ([place] & [place]) FINAL REPORT Exam: BRAIN CT WITHOUT IV CONTRAST: HISTORY: Injury from a fall. No mass or bleed or other significant acute process. This report is in agreement with the preliminary report. Transcribed Date/Time: 09/17/2018 9:36 AM
--- NOTE | 2018-09-17 07:31 | RAD ---
EXAM: Right Rib series with chest x-ray HISTORY: Right chest pain after falling from bed COMPARISON: None FINDINGS: Single view of the chest shows a normal sized cardiomediastinal silhouette. There is no moriah dence of consolidation, mass, or pleural effusion. Multiple views of the right ribs shows no evidence of displaced rib fracture. No underlying pleural t hickening or pneumothorax are seen. IMPRESSION: 1. No evidence of displaced rib fracture. 2. No evidence of acute cardiopulmonary disease.
--- NOTE | 2018-09-17 09:45 | RAD ---
RADIOGRAPH LEFT RIBS 2 VIEWS: DATE: 09/17/2018. TIME: 2:33 a.m. HISTORY: A 72-year-old female with traumatic left rib pain after a fall. FINDINGS: There is a mildly displaced fracture of the anterolateral aspect of the left 9th rib. Diffuse osteop enia. IMPRESSION: Mildly displaced, acute, traumatic fracture of distal aspect of the left 9th rib. POS: [facility]
--- NOTE | 2018-09-21 12:08 | EKG ---
Test Reason : Blood Pressure : / mmHG Vent. Rate : 061 BPM Atrial Rate : 061 BPM P-R Int : 172 ms QRS Dur : 084 ms QT Int : 402 ms P-R-T Axes : 006 037 015 degrees QTc Int : 404 ms Normal sinus rhythm Nonspecific ST and T wave abnormality Abnormal ECG Confirmed by JENA GODDARD DO ([id number]), editor city ROGERIO BAEZA ([id number]) on 09/21/2018 12:07:37 PM Referred By: Confirmed By:JENA GODDARD DO
== END 2018-09-17 05:57 | disposition home or self-care (01) ==
LOC: ERS 01:54
DX: S09.90XA Unspecified injury of head, initial encounter (principal); S22.32XA Fracture of one rib, left side, initial encounter for closed fracture; I10 Essential (primary) hypertension; F32.9 Major depressive disorder, single episode, unspecified; Z87.442 Personal history of urinary calculi; Z79.82 Long term (current) use of aspirin; Z79.899 Other long term (current) drug therapy; W06.XXXA Fall from bed, initial encounter
CPT/HCPCS: 36415; 70450; 80053; 84484; 85025; 93005; 96374; 96375; J1885; J3010

== ENCOUNTER 2019-05-22 12:12 | Outpatient (CLI) | payer MEDICARE, BC ==
--- NOTE | 2019-05-22 14:39 | MRI ---
MRI LUMBAR SPINE NONCONTRAST: DATE: 05/22/2019. HISTORY: A 73-year-old female with ICD-10: M54.16, lumbar radiculopathy. Low back pain radiating to bilateral hips, right worse than left. COMPARISON: 02/09/2011. FINDINGS: There are 5 lumbar-type vertebrae. Chronic mild anterior wedge compression fracture deformity of L1 plus prominent Schmorl's node at superior end plate of L1, with no bone marrow edema, unchanged. Con us medullaris terminates at L1-2. Perivertebral spaces are unremarkable. No bone marrow edema at an y level. Cauda equina is arranged in a symmetrical, normal distribution throughout the thecal sac. T12-L1: Mild bilateral degenerative facet changes. Otherwise, normal. L1-2: Minimal disk bulge. Otherwise, normal. L2-3: Interval development of moderate disk space narrowing with mild to moderate multifocal end kristy te irregularities. New mild disk bulge. Bilateral mild facet DJD. No high-grade neural foraminal s tenosis. No central stenosis. L3-4: Minimal disk space narrowing. Mild bilateral degenerative facet changes. No central or neura l foraminal stenosis. L4-5: Moderate to severe bilateral facet DJD, somewhat worse than in 2011, causing a slightly greate r degree, but still mild, grade I anterolisthesis of L4 on L5. Interval development of mild to moder ate disk space narrowing. Diffuse disk bulge is slightly larger on the current MRI compared to previ ous. Moderate to severe ligamentum flavum thickening is worse than previously. Moderate central spi nal canal stenosis is a new finding since the previous CT. Mild to moderate right neural foraminal s tenosis. Mild left neural foraminal stenosis. Bilateral facet joint effusions again noted. L5-S1: Severe bilateral facet DJD, similar to, or slightly worse than on the previous study. Bilate ral facet joint effusions. The facet DJD causes mild grade I anterolisthesis of L5 on S1, minimally worse than on previous study. No significant disk space narrowing. Mild right neural foraminal sten osis and no left neural foraminal stenosis. No high-grade central spinal canal stenosis. Lateral re cess stenosis on the right, with mild chronic deformity of right S1 nerve root in the lateral recess, not significantly changed. IMPRESSION: 1. Lumbar spondylosis consisting of mild and moderate degenerative disk disease at various levels, a nd severe facet osteoarthrosis at L4-5 and L5-S1. 2. The severe facet osteoarthrosis at L4-5 and L5-S1 causes grade I spondylolistheses at those level s, which have mildly worsened since the prior MRI. 3. Moderate central spinal canal stenosis with lateral recess stenosis bilaterally, at L4-5. 4. Moderate right lateral recess stenosis at L5-S1, unchanged. CHUCK Amanda POS: [facility]
== END 2019-05-22 12:13 | disposition home or self-care (01) ==
LOC: BICMRI 12:12
PROVIDERS: ATTEND Anesthesiology Pain Medicine
DX: M47.26 Other spondylosis with radiculopathy, lumbar region (principal); M51.16 Intervertebral disc disorders with radiculopathy, lumbar region; M43.16 Spondylolisthesis, lumbar region; M48.061 Spinal stenosis, lumbar region without neurogenic claudication; M48.07 Spinal stenosis, lumbosacral region; M51.37 Other intervertebral disc degeneration, lumbosacral region; M47.817 Spondylosis without myelopathy or radiculopathy, lumbosacral region; M43.17 Spondylolisthesis, lumbosacral region
CPT/HCPCS: 72148

== ENCOUNTER 2020-09-16 10:39 | Outpatient (CLI) | payer MEDICARE, BC | END 2020-09-16 10:40 | disposition home or self-care (01) | LOC: NM 10:39 | PROVIDERS: ATTEND Anesthesiology Pain Medicine | DX: G58.8 Other specified mononeuropathies (principal); S22.42XD Multiple fractures of ribs, left side, subsequent encounter for fracture with routine healing | CPT/HCPCS: 78306; A9503 ==

== ENCOUNTER 2020-10-06 09:04 | Outpatient (CLI) | payer MEDICARE, BC | END 2020-10-06 09:05 | disposition home or self-care (01) | LOC: SCSMRI 09:04 | PROVIDERS: ATTEND Anesthesiology Pain Medicine | DX: M54.14 Radiculopathy, thoracic region (principal) | CPT/HCPCS: 72146 ==

== ENCOUNTER 2020-12-25 15:13 | Inpatient (IN) | payer MEDICARE, BC ==
[~2020-12-25 15:13] MED LIST: Iopamidol-370 76% 500 ML 1 ML ONE
[2020-12-25] MEDS ORDERED: Nitroglycerin 0.4 MG TAB 1 EACH ONE (15:32)
[2020-12-25] MEDS ORDERED: Aspirin Chewable 81 MG TAB ONE (15:32)
[2020-12-25 15:48] LABS: #Basophils 0.1 thou/uL (0.0-0.2); #Eosinphils 0.4 thou/uL (0.0-0.7); #Lymphocytes 2.8 thou/uL (1.20-3.40); #Neutrophils 5.5 thou/uL (1.40-6.50); %Eosinophils 4.3 % (0.0-10.0); %Lymphocytes 28.3 % (21.0-51.0); %Monocytes 10.4 % (0.0-10.0); %Neutrophils 56.1 % (42.0-75.0); Hemoglobin 14.5 g/dL (12.0-16.0); Mean Corpuscular HGB CONC 32.6 g/dL (32.0-36.0); Mean Corpuscular Hemoglobin 30.6 pg (27.0-31.0); Mean Corpuscular Volume 94.1 fL (78.0-98.0); Mean Platelet Volume 6.6 fL (7.4-10.4); Platelet Count 231 thou/uL (130-400); RBC Distribution Width 12.2 % (11.5-14.5); Red Blood Cell (RBC) Count 4.72 mill/uL (4.20-5.40); White Blood Cell (WBC) Count 9.8 thou/uL (4.8-10.8)
[2020-12-25 16:05] LABS: ALT (SGPT) Less than 7 U/L (8-55); AST (SGOT) 12 U/L (5-34); Albumin 4.2 g/dL (3.4-4.8); Alkaline Phosphatase 64 U/L (40-110); Anion Gap 13 mmol/L (10-20); BUN (Urea Nitrogen) 17 mg/dL (9.8-20.1); Bilirubin, Total 0.3 mg/dL (0.2-1.2); Calc. Creatinine Clearance 0 mL/min (70-130); Calcium 9.6 mg/dL (7.8-10.44); Carbon Dioxide 27 mmol/L (23-31); Chloride 107 mmol/L (98-107); Globulin 2.9 g/dL (2.4-3.5); Glucose 82 mg/dL (83-110); Potassium 4.5 mmol/L (3.5-5.1); Protein, Total 7.1 g/dL (5.8-8.1); Sodium 142 mmol/L (136-145)
[2020-12-25] MEDS ORDERED: Morphine 4 MG/ML VIAL ONE ×2 (16:38→17:25)
[2020-12-25] MEDS ORDERED: Acetaminophen 500 MG TAB ONE (16:42)
[2020-12-25] MEDS ORDERED: Ondansetron PF 4 MG/2 ML Vial IVP PRN (18:01)
[2020-12-25] MEDS ORDERED: Acetaminophen 325 MG TAB PO PRN (18:01)
[2020-12-25] MEDS ORDERED: Melatonin 3 MG TAB PO PRN (18:09)
[2020-12-25] MEDS ORDERED: Nitroglycerin 0.4 MG TAB (25 Tab Bottle) SL PRN (18:09)
[2020-12-25] MEDS ORDERED: hydrALAZINE 20 MG/ML VIAL SLOW IVP PRN (18:10)
[2020-12-25] MEDS ORDERED: Enoxaparin Sodium 40 MG/0.4 ML SYRINGE SC SCH (18:15)
[2020-12-25 18:55] LABS: #Basophils 0.1 thou/uL (0.0-0.2); #Eosinphils 0.3 thou/uL (0.0-0.7); #Lymphocytes 2.4 thou/uL (1.20-3.40); #Monocytes 0.9 thou/uL (0.11-0.59); %Basophils 0.9 % (0.0-1.0); %Lymphocytes 27.5 % (21.0-51.0); %Monocytes 10.8 % (0.0-10.0); %Neutrophils 56.8 % (42.0-75.0); Hemoglobin 13.8 g/dL (12.0-16.0); Mean Corpuscular HGB CONC 33.6 g/dL (32.0-36.0); Mean Corpuscular Hemoglobin 31.6 pg (27.0-31.0); Mean Corpuscular Volume 94.1 fL (78.0-98.0); Mean Platelet Volume 6.6 fL (7.4-10.4); Platelet Count 214 thou/uL (130-400); RBC Distribution Width 12.1 % (11.5-14.5); Red Blood Cell (RBC) Count 4.37 mill/uL (4.20-5.40); White Blood Cell (WBC) Count 8.7 thou/uL (4.8-10.8)
[2020-12-25 19:16] LABS: Anion Gap 10 mmol/L (10-20); BUN (Urea Nitrogen) 17 mg/dL (9.8-20.1); Calc. Creatinine Clearance 0 mL/min (70-130); Calcium 9.2 mg/dL (7.8-10.44); Carbon Dioxide 29 mmol/L (23-31); Chloride 106 mmol/L (98-107); Glucose 86 mg/dL (83-110); Sodium 141 mmol/L (136-145)
[2020-12-25 19:20] LABS: Troponin I 0.014 ng/mL (< 0.028)
[2020-12-25] MEDS ORDERED: Enoxaparin Sodium 40 MG/0.4 ML SYRINGE ONE (20:02)
[2020-12-25] MEDS ORDERED: Carvedilol 6.25 MG TAB PO SCH (20:30)
[2020-12-25 21:18] LABS: Troponin I 0.033 ng/mL (< 0.028)
[2020-12-25] MEDS ORDERED: Famotidine/PF 20 mg/2ml Vial ONE (21:50)
[2020-12-25] MEDS ORDERED: Lisinopril 10 MG TAB ONE (21:50)
[2020-12-25] MEDS: Famotidine/PF 20 mg/2ml Vial SLOW IVP SCH (21:56)
[2020-12-25] MEDS: Lisinopril 10 MG TAB PO SCH (21:57)
[2020-12-25 22:36] LABS: SARS-CoV-2 NAA Rapid Test Not Detected (NotDetected)
[2020-12-26 00:57] VITALS: BMI 30.3
[2020-12-26 05:49] LABS: Cardiac Risk 3.9 (Less than 4.5)
[2020-12-26] MEDS: Escitalopram Oxalate 20 mg Tablet PO SCH (09:50)
[2020-12-26] MEDS: Hydrochlorothiazide 25 MG TAB PO SCH (09:50)
[2020-12-26] MEDS: Carvedilol 6.25 MG TAB PO SCH ×2 (09:51→21:04)
[2020-12-26] MEDS: Enoxaparin Sodium 40 MG/0.4 ML SYRINGE SC SCH (09:51)
[2020-12-26] MEDS: Famotidine/PF 20 mg/2ml Vial SLOW IVP SCH ×2 (09:51→21:08)
[2020-12-26] MEDS: Lisinopril 10 MG TAB PO SCH ×2 (09:51→21:06)
[2020-12-26] MEDS: Senokot S 8.6-50 MG TAB PO PRN (11:45)
[2020-12-26] MEDS ORDERED: Aspirin 81 mg Enteric Coated Tablet PO SCH (12:15)
[2020-12-26] MEDS ORDERED: Acetaminophen/Codeine 30-300mg Tablet PO SCH (13:15)
[2020-12-26] MEDS: Atorvastatin Calcium 20 MG TAB PO SCH (21:07)
[2020-12-26] MEDS: Potassium Citrate 10 MEQ TAB PO SCH (21:07)
[2020-12-26] MEDS: Acetaminophen/Codeine 30-300mg Tablet PO PRN (21:07)
[2020-12-27 04:53] LABS: #Basophils 0.1 thou/uL (0.0-0.2); #Eosinphils 0.4 thou/uL (0.0-0.7); #Lymphocytes 2.6 thou/uL (1.20-3.40); #Monocytes 0.9 thou/uL (0.11-0.59); #Neutrophils 3.7 thou/uL (1.40-6.50); %Basophils 1.8 % (0.0-1.0); %Eosinophils 5.3 % (0.0-10.0); %Lymphocytes 33.5 % (21.0-51.0); %Neutrophils 47.5 % (42.0-75.0); Hemoglobin 13.8 g/dL (12.0-16.0); Mean Corpuscular HGB CONC 32.8 g/dL (32.0-36.0); Mean Corpuscular Hemoglobin 30.7 pg (27.0-31.0); Mean Corpuscular Volume 93.6 fL (78.0-98.0); Mean Platelet Volume 6.8 fL (7.4-10.4); Platelet Count 202 thou/uL (130-400); RBC Distribution Width 12.1 % (11.5-14.5); White Blood Cell (WBC) Count 7.7 thou/uL (4.8-10.8)
[2020-12-27 05:19] LABS: Anion Gap 12 mmol/L (10-20); BUN (Urea Nitrogen) 12 mg/dL (9.8-20.1); Calc. Creatinine Clearance 71 mL/min (70-130); Carbon Dioxide 27 mmol/L (23-31); Chloride 106 mmol/L (98-107); Glucose 100 mg/dL (83-110); Potassium 4.1 mmol/L (3.5-5.1); Sodium 141 mmol/L (136-145)
[2020-12-27] MEDS: Hydrochlorothiazide 25 MG TAB PO SCH (09:30)
[2020-12-27] MEDS: Aspirin 81 mg Enteric Coated Tablet PO SCH (09:31)
[2020-12-27] MEDS: Escitalopram Oxalate 20 mg Tablet PO SCH (09:31)
[2020-12-27] MEDS: Lisinopril 10 MG TAB PO SCH ×2 (09:31→20:43)
[2020-12-27] MEDS: Famotidine/PF 20 mg/2ml Vial SLOW IVP SCH ×2 (09:31→20:43)
[2020-12-27] MEDS: Carvedilol 6.25 MG TAB PO SCH ×2 (09:31→20:42)
[2020-12-27] MEDS: Potassium Citrate 10 MEQ TAB PO SCH ×2 (09:31→20:42)
[2020-12-27] MEDS: Enoxaparin Sodium 40 MG/0.4 ML SYRINGE SC SCH (09:31)
[2020-12-27] MEDS: Senokot S 8.6-50 MG TAB PO PRN (18:06)
[2020-12-27] MEDS: Atorvastatin Calcium 20 MG TAB PO SCH (20:43)
[2020-12-27] MEDS: Acetaminophen/Codeine 30-300mg Tablet PO PRN (20:44)
[2020-12-28] MEDS ORDERED: Midazolam HCl 2 mg/2 ml Vial ONE (07:56)
[2020-12-28] MEDS ORDERED: Fentanyl 100 MCG/2 ML VIAL ONE (07:57)
[2020-12-28] MEDS ORDERED: Nitroglycerin 4.9 GM Bottle ONE (08:16)
[2020-12-28] MEDS ORDERED: Iopamidol 370 76% 100 ML VIAL ONE (08:40)
[2020-12-28] MEDS ORDERED: Acetaminophen/Codeine 30-300mg Tablet PO PRN (09:36)
[2020-12-28] MEDS: Hydrochlorothiazide 25 MG TAB PO SCH (09:44)
[2020-12-28] MEDS: Escitalopram Oxalate 20 mg Tablet PO SCH (09:44)
[2020-12-28] MEDS: Potassium Citrate 10 MEQ TAB PO SCH (09:44)
[2020-12-28] MEDS: Carvedilol 6.25 MG TAB PO SCH (09:45)
[2020-12-28] MEDS: Aspirin 81 mg Enteric Coated Tablet PO SCH (09:45)
[2020-12-28] MEDS: Lisinopril 10 MG TAB PO SCH (09:45)
[2020-12-28] MEDS: Famotidine/PF 20 mg/2ml Vial SLOW IVP SCH (09:45)
[2020-12-28] MEDS ORDERED: Morphine 2 MG/ML VIAL SLOW IVP SCH (09:45)
[2020-12-28] MEDS: Enoxaparin Sodium 40 MG/0.4 ML SYRINGE SC SCH (09:47)
[2020-12-28] MEDS ORDERED: Calcium Carbonate 500 MG ChewTAB PO PRN (10:56)
[2020-12-28 16:59] VITALS: BP 129/58; TEMP 98.3
[2020-12-28] MEDS ORDERED: FLU VACC QS2021-22(65YR UP)/PF 240 MCG/0.7 ML SYRINGE IM ONE (21:00)
== END 2020-12-28 18:41 | disposition home or self-care (01) | DRG 287 ==
LOC: ERS 15:13 → ERHOLD 17:25 → 2NO 23:21 → OBSVTOIN 12-27 10:45
PROVIDERS: ADMIT Internal Medicine; ATTEND Nurse Practitioner Family
PROC: 4A023N7 Measurement of Cardiac Sampling and Pressure, Left Heart, Percutaneous Approach (ICD-10-PCS; principal; 2020-12-28)
PROC: B2151ZZ Fluoroscopy of Left Heart using Low Osmolar Contrast (ICD-10-PCS; 2020-12-28)
PROC: B2111ZZ Fluoroscopy of Multiple Coronary Arteries using Low Osmolar Contrast (ICD-10-PCS; 2020-12-28)
DX: R07.89 Other chest pain (principal); I31.3 Pericardial effusion (noninflammatory); Z20.822 Contact with and (suspected) exposure to COVID-19; I16.0 Hypertensive urgency; K21.9 Gastro-esophageal reflux disease without esophagitis; N20.0 Calculus of kidney; K44.9 Diaphragmatic hernia without obstruction or gangrene; E78.5 Hyperlipidemia, unspecified; F32.A Depression, unspecified; I10 Essential (primary) hypertension; Z88.5 Allergy status to narcotic agent; Z88.8 Allergy status to other drugs, medicaments and biological substances; Z91.048 Other nonmedicinal substance allergy status; Z91.14 Patient's other noncompliance with medication regimen; Z79.899 Other long term (current) drug therapy; Z90.49 Acquired absence of other specified parts of digestive tract; Z98.890 Other specified postprocedural states
CPT/HCPCS: 36415; 71045; 71275; 76942; 80048; 80053; 80061; 83880; 84443; 84484; 85025; 85379; 93005; 93306; 93458; 94760; 96372; 96374; 96376; 99152; G0378; J1650; J2250; J2270; J3010; Q9967; S0028; U0002

== ENCOUNTER 2020-12-29 15:06 | Emergency (ER) | payer MEDICARE, BC | END 2020-12-29 16:51 | disposition left against medical advice (07) | LOC: ERS 15:06 | DX: Z53.21 Procedure and treatment not carried out due to patient leaving prior to being seen by health care provider (principal) | CPT/HCPCS: 94760 ==

== ENCOUNTER 2021-03-30 09:49 | Outpatient (CLI) | payer MEDICARE, BC ==
[2021-03-30 12:04] LABS: #Basophils 0.1 10x3/uL (0.0-0.2); #Eosinphils 0.2 10x3/uL (0.0-0.5); #Monocytes 0.8 10x3/uL (0.0-1.1); #Neutrophils 3.7 10x3/uL (1.5-8.4); %Basophils 1.7 % (0.0-2.0); %Eosinophils 3.3 % (0.0-6.0); %Lymphocytes 27.2 % (18.0-47.0); %Monocytes 11.6 % (0.0-10.0); %Neutrophils 55.6 % (40.0-75.0); Hemoglobin 13.4 g/dL (12.0-15.5); Mean Corpuscular HGB CONC 31.8 g/dL (32.0-36.0); Mean Corpuscular Hemoglobin 29.7 pg (27.0-33.0); Mean Corpuscular Volume 93.3 fl (81.6-98.3); Mean Platelet Volume 9.5 fl (7.4-10.4); Platelet Count 199 10x3/uL (150-450); RBC Distribution Width 13.3 % (11.5-14.5); Red Blood Cell (RBC) Count 4.51 10x6/uL (3.90-5.03); White Blood Cell (WBC) Count 6.6 10x3/uL (3.5-10.5)
[2021-03-30 12:27] LABS: ALT (SGPT) 6 U/L (8-55); AST (SGOT) 13 U/L (5-34); Albumin 4.1 g/dL (3.4-4.8); Alkaline Phosphatase 49 U/L (40-110); Anion Gap 11 mmol/L (10-20); BUN (Urea Nitrogen) 19 mg/dL (9.8-20.1); Bilirubin, Total 0.4 mg/dL (0.2-1.2); Calc. Creatinine Clearance 0 mL/min (70-130); Calcium 8.8 mg/dL (7.8-10.44); Carbon Dioxide 26 mmol/L (23-31); Chloride 108 mmol/L (98-107); Globulin 2.5 g/dL (2.4-3.5); Glucose 77 mg/dL (83-110); Potassium 4.2 mmol/L (3.5-5.1); Protein, Total 6.6 g/dL (5.8-8.1); Sodium 141 mmol/L (136-145)
[2021-03-30 20:22] LABS: SARS-CoV-2 PCR by NAA Not Detected (NotDetected)
== END 2021-03-30 09:50 | disposition home or self-care (01) ==
LOC: LABBT 09:49
PROVIDERS: ATTEND Surgery
DX: Z01.818 Encounter for other preprocedural examination (principal); K44.9 Diaphragmatic hernia without obstruction or gangrene; K22.70 Barrett's esophagus without dysplasia; Z20.822 Contact with and (suspected) exposure to COVID-19
CPT/HCPCS: 80053; 85025; 93005; U0003; U0005; 93010

== ENCOUNTER 2021-04-02 05:50 | Inpatient (IN) | payer MEDICARE, BC ==
[2021-03-29 12:18] VITALS: BMI 28.7
[2021-04-02] MEDS ORDERED: Bupivacaine 0.25% 10 ML VIAL ONE (06:41)
[2021-04-02] MEDS ORDERED: Xylocaine 1% w/ Epi 1:100K 10 ML VIAL ONE (06:41)
[2021-04-02] MEDS ORDERED: Fentanyl 100 MCG/2 ML VIAL ONE ×2 (06:44→09:57)
[2021-04-02] MEDS ORDERED: Scopolamine 1.5 mg/72 hour Patch ONE (07:18)
[2021-04-02] MEDS ORDERED: ceFAZolin 2 GM/DEX 5% 100 ML BAG ONE (07:18)
[2021-04-02] MEDS ORDERED: Phenylephrine 10 MG/ML VIAL ONE (07:38)
[2021-04-02] MEDS ORDERED: Rocuronium Bromide 10 MG/ML (10ML VIAL) ONE (07:38)
[2021-04-02] MEDS ORDERED: Glycopyrrolate 0.2 MG/ML 5 ML SYRINGE ONE (07:38)
[2021-04-02] MEDS ORDERED: PROPOFOL 200 MG/20 ML VIAL ONE (07:38)
[2021-04-02] MEDS ORDERED: Dexamethasone 20 MG/5 ML VIAL ONE (07:38)
[2021-04-02] MEDS ORDERED: Ondansetron PF 4 MG/2 ML Vial ONE (07:38)
[2021-04-02] MEDS ORDERED: ePHEDrine 50 MG/ML VIAL ONE (07:38)
[2021-04-02] MEDS ORDERED: Lidocaine 1% PF 5 ML VIAL ONE (07:38)
[2021-04-02] MEDS ORDERED: Ketorolac Tromethamine 30 MG/ML VIAL IVP PRN (09:02)
[2021-04-02] MEDS ORDERED: Promethazine HCl 25 MG/ML VIAL IVPB PRN (09:02)
[2021-04-02] MEDS ORDERED: Ondansetron HCl/PF 4 MG/2 ML Vial IVP PRN (09:02)
[2021-04-02] MEDS ORDERED: HYDROmorphone 2 MG/ML VIAL SLOW IVP PRN (09:02)
[2021-04-02] MEDS ORDERED: Promethazine HCl 25 MG/ML VIAL IM PRN ×2 (09:02→10:07)
[2021-04-02] MEDS ORDERED: HYDROmorphone 2 MG/ML VIAL ONE (10:05)
[2021-04-02] MEDS ORDERED: Ondansetron PF 4 MG/2 ML Vial IVP PRN (10:07)
[2021-04-02] MEDS ORDERED: hydrALAZINE 20 MG/ML VIAL SLOW IVP PRN (10:07)
[2021-04-02] MEDS ORDERED: diphenhydrAMINE 50 MG/ML VIAL IVP PRN (10:07)
[2021-04-02] MEDS ORDERED: Dextrose 5% in Water 1,000 ML IV PRN (10:07)
[2021-04-02] MEDS ORDERED: Dextrose 50% Abboject 50 ML SYRINGE SLOW IVP PRN (10:07)
[2021-04-02] MEDS ORDERED: Morphine 4 MG/ML VIAL SLOW IVP PRN ×2 (10:07→10:29)
[2021-04-02] MEDS ORDERED: hydrALAZINE 20 MG/ML VIAL ONE (10:39)
[2021-04-02] MEDS: D5 1/2 NS w/20 mEq KCL 1,000 ML IV SCH ×3 (11:34→21:53)
[2021-04-02] MEDS: Ketorolac Tromethamine 30 MG/ML VIAL IVP SCH ×3 (11:34→23:43)
[2021-04-02] MEDS: ceFAZolin Sodium/D5W 2 GM in Premix Bag 1 BAG IVPB SCH ×2 (15:15→23:43)
[2021-04-02] MEDS: Hydrocodone-Acetamin 15 ML UDCUP PO PRN (21:59)
[2021-04-03] MEDS: Hydrocodone-Acetamin 15 ML UDCUP PO PRN (03:33)
[2021-04-03] MEDS: Ketorolac Tromethamine 30 MG/ML VIAL IVP SCH (05:36)
[2021-04-03 05:39] LABS: #Lymphocytes 1.3 thou/uL (1.20-3.40); #Monocytes 1.3 thou/uL (0.11-0.59); #Neutrophils 7.8 thou/uL (1.40-6.50); %Eosinophils 0.1 % (0.0-10.0); %Lymphocytes 12.2 % (21.0-51.0); %Monocytes 12.5 % (0.0-10.0); %Neutrophils 75.1 % (42.0-75.0); Hemoglobin 12.4 g/dL (12.0-16.0); Mean Corpuscular HGB CONC 33.9 g/dL (32.0-36.0); Mean Corpuscular Hemoglobin 31.8 pg (27.0-31.0); Mean Platelet Volume 6.6 fL (7.4-10.4); Platelet Count 167 thou/uL (130-400); RBC Distribution Width 12.3 % (11.5-14.5); Red Blood Cell (RBC) Count 3.91 mill/uL (4.20-5.40); White Blood Cell (WBC) Count 10.3 thou/uL (4.8-10.8)
[2021-04-03 06:00] LABS: Anion Gap 10 mmol/L (10-20); BUN (Urea Nitrogen) 10 mg/dL (9.8-20.1); Calc. Creatinine Clearance 65 mL/min (70-130); Calcium 8.1 mg/dL (7.8-10.44); Carbon Dioxide 23 mmol/L (23-31); Chloride 109 mmol/L (98-107); Glucose 148 mg/dL (83-110); Potassium 4.7 mmol/L (3.5-5.1); Sodium 137 mmol/L (136-145)
[2021-04-03 08:41] VITALS: BP 120/69; TEMP 98.2
[2021-04-03] MEDS ORDERED: Enoxaparin Sodium 40 MG/0.4 ML SYRINGE SC SCH (09:00)
[2021-04-03] MEDS ORDERED: Pantoprazole 40 MG VIAL IVP SCH (09:00)
[2021-04-03] MEDS ORDERED: Enoxaparin Sodium 30 MG/0.3 ML SYRINGE SC SCH (09:00)
== END 2021-04-03 10:18 | disposition home or self-care (01) | DRG 328 ==
LOC: SDC 05:50 → SJJU 10:12
PROVIDERS: ADMIT Surgery; ATTEND Surgery
PROC: 0BUT4JZ Supplement Diaphragm with Synthetic Substitute, Percutaneous Endoscopic Approach (ICD-10-PCS; principal; 2021-04-02)
PROC: 0DJ68ZZ Inspection of Stomach, Via Natural or Artificial Opening Endoscopic (ICD-10-PCS; 2021-04-02)
DX: K44.9 Diaphragmatic hernia without obstruction or gangrene (principal); K22.70 Barrett's esophagus without dysplasia; G43.909 Migraine, unspecified, not intractable, without status migrainosus; F32.A Depression, unspecified; I10 Essential (primary) hypertension; Z88.8 Allergy status to other drugs, medicaments and biological substances
CPT/HCPCS: 36415; 80048; 85025; C1713; C1776; C9113; J0360; J1170; J1650; J1885; J2270; J2405; J3010; J3480; S0020

== ENCOUNTER 2021-04-05 10:03 | Emergency (ER) | payer MEDICARE, BC ==
[2021-04-05 10:49] LABS: #Basophils 0.1 thou/uL (0.0-0.2); #Eosinphils 0.1 thou/uL (0.0-0.7); #Lymphocytes 2.2 thou/uL (1.20-3.40); #Monocytes 1.3 thou/uL (0.11-0.59); #Neutrophils 6.6 thou/uL (1.40-6.50); %Basophils 0.9 % (0.0-1.0); %Eosinophils 1.2 % (0.0-10.0); %Lymphocytes 21.2 % (21.0-51.0); %Monocytes 12.4 % (0.0-10.0); %Neutrophils 64.4 % (42.0-75.0); Hemoglobin 14.6 g/dL (12.0-16.0); Mean Corpuscular Hemoglobin 31.7 pg (27.0-31.0); Mean Corpuscular Volume 93.3 fL (78.0-98.0); Mean Platelet Volume 6.9 fL (7.4-10.4); Platelet Count 197 thou/uL (130-400); RBC Distribution Width 12.4 % (11.5-14.5); White Blood Cell (WBC) Count 10.2 thou/uL (4.8-10.8)
[2021-04-05 11:14] LABS: ALT (SGPT) 17 U/L (8-55); AST (SGOT) 21 U/L (5-34); Alkaline Phosphatase 58 U/L (40-110); Anion Gap 14 mmol/L (10-20); BUN (Urea Nitrogen) 15 mg/dL (9.8-20.1); Bilirubin, Total 0.8 mg/dL (0.2-1.2); Calc. Creatinine Clearance 0 mL/min (70-130); Calcium 9.9 mg/dL (7.8-10.44); Carbon Dioxide 24 mmol/L (23-31); Chloride 105 mmol/L (98-107); Globulin 3.4 g/dL (2.4-3.5); Glucose 104 mg/dL (83-110); Potassium 4.3 mmol/L (3.5-5.1); Protein, Total 7.4 g/dL (5.8-8.1); Sodium 139 mmol/L (136-145)
[2021-04-05 12:21] LABS: Bilirubin Negative (Negative); Blood, Urine 1+ (Negative); Clarity Turbid (Clear); Glucose, Urine (Dipstick) Normal (Negative); Ketone, Urine Trace mg/dL (Negative); Leukocyte 500 Leu/uL (Negative); Nitrite 2+ (Negative); Protein, Urine (Dipstick) 30 mg/dL (Neg-Trace); RBC/HPF 21-50 HPF (0-3); Specific Gravity, Urine 1.027 (1.002-1.036); Squamous Epithelial 0-3 HPF (0-3); Urobilinogen Normal mg/dL (Less than 2); WBC/HPF Greater than 50 HPF (0-3)
[2021-04-05 12:30] LABS: Bacteria/HPF 4+ HPF (None Seen); Yeast-Budding None Seen HPF (None Seen)
[2021-04-05] MEDS ORDERED: Fentanyl 100 MCG/2 ML VIAL ONE ×2 (12:45→15:34)
[2021-04-05] MEDS ORDERED: Ondansetron PF 4 MG/2 ML Vial ONE ×2 (12:45→15:34)
[2021-04-05] MEDS ORDERED: cefTRIAXone\\ROCEPHIN 1 GM VIAL ONE (13:19)
== END 2021-04-05 15:52 | disposition home or self-care (01) ==
LOC: ERS 10:03
DX: N30.01 Acute cystitis with hematuria (principal); D72.829 Elevated white blood cell count, unspecified; G89.18 Other acute postprocedural pain; I10 Essential (primary) hypertension; Z87.19 Personal history of other diseases of the digestive system; Z98.890 Other specified postprocedural states; Z79.899 Other long term (current) drug therapy
CPT/HCPCS: 36415; 71260; 74177; 80053; 81003; 81015; 85025; 87077; 87086; 87186; 96365; 96375; 96376; J0696; J2405; J3010; Q9967

== ENCOUNTER 2021-10-15 09:44 | Outpatient (CLI) | payer MEDICARE, BC | END 2021-10-15 09:45 | disposition home or self-care (01) | LOC: MRI 09:44 | PROVIDERS: ATTEND Nurse Practitioner Family | DX: M48.062 Spinal stenosis, lumbar region with neurogenic claudication (principal); M47.26 Other spondylosis with radiculopathy, lumbar region; M43.16 Spondylolisthesis, lumbar region; M43.17 Spondylolisthesis, lumbosacral region; M47.27 Other spondylosis with radiculopathy, lumbosacral region; M48.07 Spinal stenosis, lumbosacral region | CPT/HCPCS: 72148 ==

== ENCOUNTER 2021-12-21 09:48 | Outpatient (CLI) | payer MEDICARE, BC ==
[2021-12-21 11:39] LABS: Hemoglobin 13.6 g/dL (12.0-15.5); Mean Corpuscular HGB CONC 31.9 g/dL (32.0-36.0); Mean Corpuscular Hemoglobin 29.4 pg (27.0-33.0); Mean Corpuscular Volume 92.2 fl (81.6-98.3); Mean Platelet Volume 9.6 fl (7.4-10.4); Platelet Count 187 10x3/uL (150-450); RBC Distribution Width 13.3 % (11.5-14.5); Red Blood Cell (RBC) Count 4.62 10x6/uL (3.90-5.03); White Blood Cell (WBC) Count 6.2 10x3/uL (3.5-10.5)
[2021-12-21 12:04] LABS: PTT 27.4 sec (22.0-33.0); Prothrombin Time 10.9 sec (9.5-12.1)
[2021-12-21 12:24] LABS: Anion Gap 13 mmol/L (10-20); BUN (Urea Nitrogen) 18 mg/dL (9.8-20.1); Calc. Creatinine Clearance 0 mL/min (70-130); Carbon Dioxide 24 mmol/L (23-31); Chloride 108 mmol/L (98-107); Estimated GFR 88; Glucose 82 mg/dL (83-110); Sodium 141 mmol/L (136-145)
== END 2021-12-21 09:49 | disposition home or self-care (01) ==
LOC: LABBT 09:48
PROVIDERS: ATTEND Surgery
DX: Z01.818 Encounter for other preprocedural examination (principal); M51.16 Intervertebral disc disorders with radiculopathy, lumbar region; Z20.822 Contact with and (suspected) exposure to COVID-19
CPT/HCPCS: 80048; 85027; 85610; 85730; 87811; 93005; 93010

== ENCOUNTER 2022-01-19 07:27 | Outpatient (CLI) | payer MEDICARE, BC | END 2022-01-19 07:28 | disposition home or self-care (01) | LOC: RAD 07:27 | PROVIDERS: ATTEND Physician Assistant Medical | DX: R13.10 Dysphagia, unspecified (principal); K44.9 Diaphragmatic hernia without obstruction or gangrene; K22.89 Other specified disease of esophagus | CPT/HCPCS: 74220 ==

== ENCOUNTER → 2022-02-15 | Day surgery (SDC) | payer MEDICARE, BC ==
[~2022-02-15] MED LIST changes: -Iopamidol-370 76% 500 ML 1 ML ONE; +Oxymetazoline HCl 0.05% (30 ML BOT) ONE
== END | disposition home or self-care (01) ==
LOC: SDC 07:35
PROVIDERS: ATTEND Surgery
DX: K44.9 Diaphragmatic hernia without obstruction or gangrene (principal); K21.9 Gastro-esophageal reflux disease without esophagitis; I10 Essential (primary) hypertension; M81.0 Age-related osteoporosis without current pathological fracture; M79.7 Fibromyalgia; Z79.899 Other long term (current) drug therapy; Z88.8 Allergy status to other drugs, medicaments and biological substances; Z91.048 Other nonmedicinal substance allergy status
CPT/HCPCS: 91010

== ENCOUNTER 2022-02-28 12:55 | Outpatient (CLI) | payer MEDICARE, BC ==
[2022-02-28 14:47] LABS: #Basophils 0.1 10x3/uL (0.0-0.2); #Eosinphils 0.1 10x3/uL (0.0-0.5); #Monocytes 0.6 10x3/uL (0.0-1.1); #Neutrophils 5.6 10x3/uL (1.5-8.4); %Basophils 1.1 % (0.0-2.0); %Eosinophils 1.3 % (0.0-6.0); %Lymphocytes 23.3 % (18.0-47.0); %Monocytes 6.8 % (0.0-10.0); %Neutrophils 66.8 % (40.0-75.0); Hemoglobin 13.5 g/dL (12.0-15.5); Mean Corpuscular HGB CONC 32.7 g/dL (32.0-36.0); Mean Corpuscular Hemoglobin 29.5 pg (27.0-33.0); Mean Corpuscular Volume 90.4 fl (81.6-98.3); Mean Platelet Volume 9.5 fl (7.4-10.4); Platelet Count 248 10x3/uL (150-450); RBC Distribution Width 13.8 % (11.5-14.5); Red Blood Cell (RBC) Count 4.57 10x6/uL (3.90-5.03); White Blood Cell (WBC) Count 8.4 10x3/uL (3.5-10.5)
[2022-02-28 15:16] LABS: ALT (SGPT) 20 U/L (8-55); AST (SGOT) 18 U/L (5-34); Albumin 4.1 g/dL (3.4-4.8); Alkaline Phosphatase 53 U/L (40-110); Anion Gap 14 mmol/L (10-20); BUN (Urea Nitrogen) 26 mg/dL (9.8-20.1); Bilirubin, Total 0.6 mg/dL (0.2-1.2); Calc. Creatinine Clearance 0 mL/min (70-130); Calcium 9.7 mg/dL (7.8-10.44); Carbon Dioxide 23 mmol/L (23-31); Chloride 107 mmol/L (98-107); Estimated GFR 81; Globulin 2.7 g/dL (2.4-3.5); Glucose 127 mg/dL (83-110); Potassium 4.4 mmol/L (3.5-5.1); Protein, Total 6.8 g/dL (5.8-8.1); Sodium 140 mmol/L (136-145)
== END 2022-02-28 12:56 | disposition home or self-care (01) ==
LOC: LABBT 12:55
PROVIDERS: ATTEND Surgery
DX: Z01.818 Encounter for other preprocedural examination (principal); K44.9 Diaphragmatic hernia without obstruction or gangrene
CPT/HCPCS: 80053; 85025; 93005; 93010

== ENCOUNTER 2022-03-02 05:44 | Inpatient (IN) | payer MEDICARE, BC ==
[2022-03-02] MEDS ORDERED: fentaNYL PF 100 MCG/2 ML SYRINGE ONE (06:09)
[2022-03-02] MEDS ORDERED: Bupivacaine/Epinephrine 0.25% 30 ML VIAL ONE (06:44)
[2022-03-02] MEDS ORDERED: CEFAZOLIN 2 GM VIAL ONE (07:05)
[2022-03-02] MEDS ORDERED: Sodium Chloride 0.9% 100 ML ONE (07:05)
[2022-03-02 07:26] LABS: SARS-CoV-2 NAA Rapid Test Not Detected (NotDetected)
[2022-03-02] MEDS ORDERED: Ondansetron PF 4 MG/2 ML Vial ONE (07:34)
[2022-03-02] MEDS ORDERED: Rocuronium Bromide 10 MG/ML (10ML VIAL) ONE (07:34)
[2022-03-02] MEDS ORDERED: NEOSTIGMINE 3 MG/3 ML SYR 3 MG/3 ML SYRINGE ONE (07:34)
[2022-03-02] MEDS ORDERED: Labetalol HCl 100 MG/20 ML VIAL ONE (07:34)
[2022-03-02] MEDS ORDERED: PROPOFOL 200 MG/20 ML VIAL ONE (07:34)
[2022-03-02] MEDS ORDERED: Dexamethasone 20 MG/5 ML VIAL ONE (07:34)
[2022-03-02] MEDS ORDERED: ePHEDrine 50 MG/ML VIAL ONE (07:34)
[2022-03-02] MEDS ORDERED: SUGAMMADEX SODIUM 200 MG/2 ML VIAL ONE (08:55)
[2022-03-02] MEDS ORDERED: Promethazine HCl 25 MG/ML VIAL IM PRN ×3 (09:40→13:21)
[2022-03-02] MEDS ORDERED: diphenhydrAMINE 50 MG/ML VIAL IVP PRN ×2 (09:40→13:21)
[2022-03-02] MEDS ORDERED: Dextrose 5% in Water 1,000 ML IV PRN (09:40)
[2022-03-02] MEDS ORDERED: Ondansetron PF 4 MG/2 ML Vial IVP PRN ×2 (09:40→13:21)
[2022-03-02] MEDS ORDERED: hydrALAZINE 20 MG/ML VIAL SLOW IVP PRN (09:40)
[2022-03-02] MEDS ORDERED: Dextrose 50% Abboject 50 ML SYRINGE SLOW IVP PRN (09:40)
[2022-03-02] MEDS ORDERED: CEFAZOLIN 2 GM in Sodium Chloride 0.9% 100 ML IVPB SCH (09:45)
[2022-03-02] MEDS ORDERED: Promethazine HCl 25 MG/ML VIAL IVPB PRN (09:48)
[2022-03-02] MEDS ORDERED: Ondansetron HCl/PF 4 MG/2 ML Vial IVP PRN (09:48)
[2022-03-02] MEDS ORDERED: HYDROmorphone 0.5 MG/0.5 ML SYRINGE ONE ×3 (10:06→13:18)
[2022-03-02] MEDS ORDERED: FENTANYL 50 MCG/ML 1 ML VIAL ONE ×3 (10:51→12:49)
[2022-03-02] MEDS ORDERED: Promethazine HCl 25 MG/ML VIAL ONE (10:51)
[2022-03-02] MEDS ORDERED: HYDROcodone/Acetaminophen 7.5/325 mg Tablet PO PRN (11:09)
[2022-03-02] MEDS ORDERED: FENTANYL 50 MCG/ML 1 ML VIAL SLOW IVP PRN (11:10)
[2022-03-02] MEDS ORDERED: D5 1/2 NS w/20 mEq KCL 1,000 ML ONE (11:40)
[2022-03-02] MEDS: D5 1/2 NS w/20 mEq KCL 1,000 ML IV SCH ×2 (12:25→22:07)
[2022-03-02] MEDS ORDERED: diphenhydrAMINE 50 MG/ML VIAL IM PRN (13:21)
[2022-03-02] MEDS ORDERED: HYDROmorphone 10 mg/100 ml CADD IVPB PRN (13:21)
[2022-03-02] MEDS ORDERED: Naloxone HCl 0.4 mg/ml Vial IV PRN (13:21)
[2022-03-02] MEDS ORDERED: Zolpidem Tartrate 5 MG TAB PO PRN (13:21)
[2022-03-02] MEDS ORDERED: diphenhydrAMINE 25 MG CAP PO PRN (13:21)
[2022-03-02] MEDS ORDERED: Ketorolac Tromethamine 30 MG/ML VIAL ONE (13:26)
[2022-03-02] MEDS: Ketorolac Tromethamine 30 MG/ML VIAL IVP SCH ×2 (13:26→18:17)
[2022-03-02] MEDS ORDERED: Communication Order-Pharmacy FS SCH (13:30)
[2022-03-02] MEDS: CEFAZOLIN 2 GM in Sodium Chloride 0.9% 100 ML IVPB SCH (16:12)
[2022-03-02 16:53] VITALS: BMI 28.8
[2022-03-03] MEDS: Ketorolac Tromethamine 30 MG/ML VIAL IVP SCH ×4 (00:21→20:37)
[2022-03-03] MEDS: CEFAZOLIN 2 GM in Sodium Chloride 0.9% 100 ML IVPB SCH (00:23)
[2022-03-03] MEDS: D5 1/2 NS w/20 mEq KCL 1,000 ML IV SCH ×3 (03:00→20:38)
[2022-03-03 06:25] LABS: #Lymphocytes 1.1 thou/uL (1.20-3.40); #Monocytes 0.7 thou/uL (0.11-0.59); #Neutrophils 6.4 thou/uL (1.40-6.50); %Basophils 0.1 % (0.0-1.0); %Eosinophils 0.1 % (0.0-10.0); %Lymphocytes 13.2 % (21.0-51.0); %Monocytes 8.5 % (0.0-10.0); Mean Corpuscular HGB CONC 31.4 g/dL (32.0-36.0); Mean Corpuscular Hemoglobin 30.4 pg (27.0-31.0); Mean Platelet Volume 7.3 fL (7.4-10.4); Platelet Count 199 10x3/uL (130-400); RBC Distribution Width 12.9 % (11.5-14.5); White Blood Cell (WBC) Count 8.3 10x3/uL (4.8-10.8)
[2022-03-03 06:33] LABS: Anion Gap 12 mmol/L (10-20); BUN (Urea Nitrogen) 20 mg/dL (9.8-20.1); Calc. Creatinine Clearance 53 mL/min (70-130); Calcium 7.9 mg/dL (7.8-10.44); Carbon Dioxide 23 mmol/L (23-31); Chloride 101 mmol/L (98-107); Estimated GFR 60; Glucose 120 mg/dL (83-110); Potassium 5.4 mmol/L (3.5-5.1); Sodium 131 mmol/L (136-145)
[2022-03-03] MEDS ORDERED: Enoxaparin Sodium 40 MG/0.4 ML SYRINGE SC SCH (09:00)
[2022-03-03] MEDS ORDERED: Pantoprazole 40 MG VIAL IVP SCH (09:00)
[2022-03-03] MEDS ORDERED: Diazepam 10 MG/2 ML SYRINGE IVP PRN (15:27)
[2022-03-03] MEDS ORDERED: Nitroglycerin 0.4 MG TAB (25 Tab Bottle) SL PRN (15:33)
[2022-03-03] MEDS ORDERED: Nitroglycerin 0.4 MG TAB (25 Tab Bottle) ONE ×2 (15:48)
[2022-03-03] MEDS ORDERED: Iopamidol-370 76% 500 ML 1 ML ONE ×2 (15:58→15:59)
[2022-03-03 16:22] VITALS: BP 167/90; TEMP 97.5
[2022-03-03] MEDS ORDERED: Lidocaine 1% (PF) 30 ML VIAL ONE (18:03)
[2022-03-03] MEDS ORDERED: Piperacillin/Tazobactam 3.375 GM in Sodium Chloride 0.9% 100 ML IVPB SCH ×2 (20:00→23:59)
== END 2022-03-03 21:10 | disposition short-term general hospital (02) | DRG 327 ==
LOC: SDC 05:44 → SURG A 09:40
PROVIDERS: ADMIT Surgery; ATTEND Surgery
PROC: 0BUT4JZ Supplement Diaphragm with Synthetic Substitute, Percutaneous Endoscopic Approach (ICD-10-PCS; principal; 2022-03-02)
PROC: 8E0W4CZ Robotic Assisted Procedure of Trunk Region, Percutaneous Endoscopic Approach (ICD-10-PCS; 2022-03-02)
PROC: 0W9930Z Drainage of Right Pleural Cavity with Drainage Device, Percutaneous Approach (ICD-10-PCS; 2022-03-03)
DX: K44.9 Diaphragmatic hernia without obstruction or gangrene (principal); J93.9 Pneumothorax, unspecified; Z20.822 Contact with and (suspected) exposure to COVID-19; G43.909 Migraine, unspecified, not intractable, without status migrainosus; F41.9 Anxiety disorder, unspecified; K21.9 Gastro-esophageal reflux disease without esophagitis; I10 Essential (primary) hypertension; M79.7 Fibromyalgia; Z79.899 Other long term (current) drug therapy
CPT/HCPCS: 36415; 71045; 71275; 74177; 74240; 80048; 80053; 85025; 93005; 93010; C9113; J1100; J1170; J1650; J1885; J2001; J2405; J2543; J2550; J2704; J3010; J3480; J3490; J7643; Q9967; U0002

== ENCOUNTER 2022-06-23 15:00 | Outpatient (CLI) | payer MEDICARE, BC | END 2022-06-23 15:01 | disposition home or self-care (01) | LOC: BICRAD 15:00 | PROVIDERS: ATTEND Internal Medicine | DX: M51.36 Other intervertebral disc degeneration, lumbar region (principal); Z98.890 Other specified postprocedural states; M43.17 Spondylolisthesis, lumbosacral region; M48.56XA Collapsed vertebra, not elsewhere classified, lumbar region, initial encounter for fracture | CPT/HCPCS: 72100 ==

== ENCOUNTER 2022-11-03 12:03 | Outpatient (CLI) | payer MEDICARE, BC | END 2022-11-03 12:04 | disposition home or self-care (01) | LOC: RAD 12:03 | PROVIDERS: ATTEND Nurse Practitioner Family | DX: M54.50 Low back pain, unspecified (principal); M47.816 Spondylosis without myelopathy or radiculopathy, lumbar region; Z98.890 Other specified postprocedural states | CPT/HCPCS: 72100 ==

== ENCOUNTER 2022-11-18 12:45 | Outpatient (CLI) | payer MEDICARE, BC | END 2022-11-18 12:46 | disposition home or self-care (01) | LOC: MRI 12:45 | PROVIDERS: ATTEND Internal Medicine | DX: M51.36 Other intervertebral disc degeneration, lumbar region (principal); M51.37 Other intervertebral disc degeneration, lumbosacral region | CPT/HCPCS: 72148 ==

== ENCOUNTER 2023-09-05 09:52 | Day surgery (SDC) | payer MEDICARE ==
[2023-09-04 15:32] VITALS: BMI 28.3
[2023-09-05] MEDS ORDERED: Diazepam 5 MG TAB ONE (10:52)
[2023-09-05] MEDS ORDERED: Lidocaine 1% MPF 2 ML VIAL ONE (10:57)
[2023-09-05 10:58] LABS: %Basophils 1.2 % (0.0-1.0); %Eosinophils 1.6 % (0.0-10.0); %Lymphocytes 36.6 % (21.0-51.0); %Monocytes 11.2 % (0.0-10.0); %Neutrophils 48.9 % (42.0-75.0); Hematocrit 41.6 % (36.0-47.0); Hemoglobin 13.4 g/dL (12.0-16.0); Mean Corpuscular HGB CONC 32.2 g/dL (32.0-36.0); Mean Corpuscular Hemoglobin 28.5 pg (27.0-31.0); Mean Corpuscular Volume 88.3 fL (78.0-98.0); Mean Platelet Volume 9.7 fL (7.4-10.4); Platelet Count 220 10x3/uL (130-400); RBC Distribution Width 15.9 % (11.5-14.5); Red Blood Cell (RBC) Count 4.71 mill/uL (4.20-5.40)
[2023-09-05 11:14] LABS: Anion Gap 10 mmol/L (10-20); BUN (Urea Nitrogen) 18 mg/dL (9.8-20.1); Calc. Creatinine Clearance 57 mL/min (70-130); Calcium 9.6 mg/dL (7.8-10.44); Carbon Dioxide 28 mmol/L (23-31); Chloride 107 mmol/L (98-107); Estimated GFR 71; Glucose 94 mg/dL (83-110); Potassium 3.3 mmol/L (3.5-5.1); Sodium 142 mmol/L (136-145)
[2023-09-05] MEDS ORDERED: Heparin 10,000 UNITS/ 10 ML VIAL ONE (11:19)
[2023-09-05] MEDS ORDERED: Nitroglycerin 50 MG/250 ML BOT 0 ML ONE (11:19)
[2023-09-05] MEDS ORDERED: Verapamil 5 MG/2 ML VIAL ONE (11:19)
[2023-09-05] MEDS ORDERED: hydrALAZINE 20 MG/ML VIAL ONE (11:39)
[2023-09-05] MEDS ORDERED: Iopamidol 370 76% 100 ML VIAL ONE (11:51)
[2023-09-05] MEDS ORDERED: Midazolam HCl 2 mg/2 ml Vial ONE (12:40)
[2023-09-05] MEDS ORDERED: fentaNYL 50 mcg/mL 1 mL Vial ONE (12:40)
== END 2023-09-05 16:55 | disposition home or self-care (01) ==
LOC: CCL 09:52
PROVIDERS: ATTEND Internal Medicine Cardiovascular Disease
PROC: 4A023N7 Measurement of Cardiac Sampling and Pressure, Left Heart, Percutaneous Approach (ICD-10-PCS; principal; 2023-09-05)
PROC: B300ZZZ Plain Radiography of Thoracic Aorta (ICD-10-PCS; 2023-09-05)
DX: I25.10 Atherosclerotic heart disease of native coronary artery without angina pectoris (principal); I95.9 Hypotension, unspecified; I10 Essential (primary) hypertension; E78.5 Hyperlipidemia, unspecified; K21.9 Gastro-esophageal reflux disease without esophagitis; Z79.899 Other long term (current) drug therapy; Z90.49 Acquired absence of other specified parts of digestive tract; Z91.048 Other nonmedicinal substance allergy status
CPT/HCPCS: 75625; 80048; 85025; 93458; C1769 ×2; C1887; C1894; J0360; J2250; J3010; 99152; J1644; Q9967

== ENCOUNTER 2023-10-06 10:25 | Outpatient (CLI) | payer MEDICARE ==
[2023-10-06] MEDS ORDERED: E-Z-HD 98% W/W 340GM BOT (x-ray ONLY) ONE (10:48)
[2023-10-06] MEDS ORDERED: Barium Sulfate 96% 176 GM BOT (xray ONLY) ONE (10:48)
== END 2023-10-06 10:26 | disposition home or self-care (01) ==
LOC: RAD 10:25
PROVIDERS: ATTEND Internal Medicine Gastroenterology
DX: K21.9 Gastro-esophageal reflux disease without esophagitis (principal); K22.4 Dyskinesia of esophagus; R93.1 Abnormal findings on diagnostic imaging of heart and coronary circulation; R09.A2 Foreign body sensation, throat; K22.2 Esophageal obstruction
CPT/HCPCS: 74220

== ENCOUNTER 2023-11-15 07:23 | Outpatient (CLI) | payer MEDICARE | END 2023-11-15 07:24 | disposition home or self-care (01) | LOC: NM 07:23 | PROVIDERS: ATTEND Internal Medicine Gastroenterology | DX: K31.84 Gastroparesis (principal) | CPT/HCPCS: 78264; A9541 ==

== ENCOUNTER 2023-11-24 08:47 | Outpatient (CLI) | payer MEDICARE ==
[2023-11-24] MEDS ORDERED: Iopamidol 370 76% 100 ML VIAL ONE (14:04)
== END 2023-11-24 08:48 | disposition home or self-care (01) ==
LOC: CT 08:47
PROVIDERS: ATTEND Internal Medicine Gastroenterology
DX: K31.84 Gastroparesis (principal); K22.4 Dyskinesia of esophagus; R13.10 Dysphagia, unspecified; N32.89 Other specified disorders of bladder; K31.89 Other diseases of stomach and duodenum; K56.2 Volvulus; K59.00 Constipation, unspecified; Z98.890 Other specified postprocedural states
CPT/HCPCS: 74177; 82565; Q9967

== ENCOUNTER 2024-10-30 09:40 | Outpatient (CLI) | payer MEDICARE | END 2024-10-30 09:41 | disposition home or self-care (01) | LOC: BICMAMMO 09:40 | PROVIDERS: ATTEND Internal Medicine Endocrinology, Diabetes & Metabolism | DX: M81.0 Age-related osteoporosis without current pathological fracture (principal); M85.851 Other specified disorders of bone density and structure, right thigh; M85.852 Other specified disorders of bone density and structure, left thigh | CPT/HCPCS: 77080 ==